=== PATIENT | female | born 1995 | race Caucasian/White ===

== ENCOUNTER 2019-06-18 15:58 | Emergency (ER) | payer OTHER, MEDICAID ==
[~2019-06-18] VITALS: Ht 124.5 cm; Wt 49.0 kg
[2019-06-18 16:20] VITALS: Ht 124.5 cm; Wt 49.0 kg
[2019-06-18 18:34] VITALS: BP 99/71
== END 2019-06-18 18:34 | disposition home or self-care (01) ==
LOC: ED 15:58
DX: S80.11XA Contusion of right lower leg, initial encounter (principal); S20.212A Contusion of left front wall of thorax, initial encounter; M19.90 Unspecified osteoarthritis, unspecified site; V48.6XXA Car passenger injured in noncollision transport accident in traffic accident, initial encounter; Y93.89 Activity, other specified; Y92.411 Interstate highway as the place of occurrence of the external cause; Y99.8 Other external cause status
CPT/HCPCS: J1885